=== PATIENT | female | born 2000 | race Caucasian/White ===

== ENCOUNTER 2021-11-02 21:20 | Emergency (ER) | payer OTHER | END 2021-11-03 00:39 | disposition home or self-care (01) | LOC: ER1 21:20 | DX: J06.9 Acute upper respiratory infection, unspecified (principal); Z20.822 Contact with and (suspected) exposure to COVID-19; F17.210 Nicotine dependence, cigarettes, uncomplicated | CPT/HCPCS: 0240U; 99284 ==